=== PATIENT | male | born 1965 | race Caucasian/White ===

== ENCOUNTER 2024-06-20 13:31 | Outpatient (RCR) | payer OTHER, SELFPAY | END 2024-06-20 23:59 | disposition home or self-care (01) | LOC: RST 13:31 | PROVIDERS: ATTENDING PHYSICIAN Family Medicine | DX: I69.322 Dysarthria following cerebral infarction (principal); I69.314 Frontal lobe and executive function deficit following cerebral infarction; Z73.6 Limitation of activities due to disability; Z91.81 History of falling; I69.398 Other sequelae of cerebral infarction; R26.89 Other abnormalities of gait and mobility | CPT/HCPCS: 96125; 97110; 97112; 97116; 97129; 97130; 97140; 97163; 97167; 97530; 97535 ==

== ENCOUNTER 2024-07-16 12:45 | Outpatient (RCR) | payer OTHER, SELFPAY | END 2024-07-16 23:59 | disposition home or self-care (01) | LOC: RST 12:45 | PROVIDERS: ATTENDING PHYSICIAN Family Medicine | DX: I69.322 Dysarthria following cerebral infarction (principal); I69.314 Frontal lobe and executive function deficit following cerebral infarction; R41.841 Cognitive communication deficit; I69.398 Other sequelae of cerebral infarction; Z73.6 Limitation of activities due to disability | CPT/HCPCS: 97110; 97112; 97116; 97129; 97130; 97140; 97530 ==

== ENCOUNTER 2024-08-21 10:41 | Outpatient (RCR) | payer OTHER, MEDICAID, SELFPAY | END 2024-08-21 23:59 | disposition home or self-care (01) | LOC: RST 10:41 | PROVIDERS: ATTENDING PHYSICIAN Family Medicine | DX: I69.322 Dysarthria following cerebral infarction (principal); I69.314 Frontal lobe and executive function deficit following cerebral infarction | CPT/HCPCS: 97010; 97110; 97112; 97116; 97129; 97130; 97140; 97530; 97535 ==

== ENCOUNTER 2024-09-16 12:49 | Outpatient (RCR) | payer MEDICAID, OTHER, SELFPAY | END 2024-09-16 23:59 | disposition home or self-care (01) | LOC: RST 12:49 | PROVIDERS: ATTENDING PHYSICIAN Family Medicine | DX: I69.322 Dysarthria following cerebral infarction (principal); Z73.6 Limitation of activities due to disability; I69.393 Ataxia following cerebral infarction; I69.398 Other sequelae of cerebral infarction; I69.314 Frontal lobe and executive function deficit following cerebral infarction; I69.318 Other symptoms and signs involving cognitive functions following cerebral infarction | CPT/HCPCS: 97110; 97112; 97116; 97140; 97163; 97167; 97530 ==

== ENCOUNTER 2024-10-21 11:40 | Outpatient (RCR) | payer OTHER, SELFPAY | END 2024-10-21 23:59 | disposition home or self-care (01) | LOC: RST 11:40 | PROVIDERS: ATTENDING PHYSICIAN Family Medicine | DX: I69.322 Dysarthria following cerebral infarction (principal); I69.393 Ataxia following cerebral infarction; I69.398 Other sequelae of cerebral infarction; I69.314 Frontal lobe and executive function deficit following cerebral infarction; I69.318 Other symptoms and signs involving cognitive functions following cerebral infarction; Z73.6 Limitation of activities due to disability | CPT/HCPCS: 97110; 97112; 97116; 97140; 97530; 97537 ==

== ENCOUNTER 2024-11-18 11:40 | Outpatient (RCR) | payer OTHER, SELFPAY | END 2024-11-18 23:59 | disposition home or self-care (01) | LOC: RST 11:40 | PROVIDERS: ATTENDING PHYSICIAN Family Medicine | DX: I69.322 Dysarthria following cerebral infarction (principal); I69.393 Ataxia following cerebral infarction; Z73.6 Limitation of activities due to disability; I69.398 Other sequelae of cerebral infarction; I69.310 Attention and concentration deficit following cerebral infarction; I69.314 Frontal lobe and executive function deficit following cerebral infarction; I69.311 Memory deficit following cerebral infarction; I69.318 Other symptoms and signs involving cognitive functions following cerebral infarction; R41.841 Cognitive communication deficit; M25.512 Pain in left shoulder | CPT/HCPCS: 97110; 97112; 97116; 97140; 97530; 97537 ==

== ENCOUNTER 2024-12-18 12:43 | Outpatient (RCR) | payer OTHER, SELFPAY | END 2024-12-18 23:59 | disposition home or self-care (01) | LOC: RST 12:43 | PROVIDERS: ATTENDING PHYSICIAN Family Medicine | DX: I69.322 Dysarthria following cerebral infarction (principal); I69.314 Frontal lobe and executive function deficit following cerebral infarction; I69.310 Attention and concentration deficit following cerebral infarction; I69.311 Memory deficit following cerebral infarction; R41.841 Cognitive communication deficit; M25.512 Pain in left shoulder; Z73.6 Limitation of activities due to disability; I69.398 Other sequelae of cerebral infarction; I69.393 Ataxia following cerebral infarction; I69.318 Other symptoms and signs involving cognitive functions following cerebral infarction | CPT/HCPCS: 97110; 97112; 97116; 97140; 97530; 97537 ==

== ENCOUNTER 2025-01-15 11:41 | Outpatient (RCR) | payer OTHER, SELFPAY | END 2025-01-15 23:59 | disposition home or self-care (01) | LOC: RST 11:41 | PROVIDERS: ATTENDING PHYSICIAN Family Medicine | DX: I69.322 Dysarthria following cerebral infarction (principal); I69.314 Frontal lobe and executive function deficit following cerebral infarction; I69.310 Attention and concentration deficit following cerebral infarction; I69.311 Memory deficit following cerebral infarction; M25.512 Pain in left shoulder; I69.393 Ataxia following cerebral infarction; I69.398 Other sequelae of cerebral infarction; I69.318 Other symptoms and signs involving cognitive functions following cerebral infarction; Z73.6 Limitation of activities due to disability; R41.841 Cognitive communication deficit | CPT/HCPCS: 97110; 97112; 97116; 97140; 97530; 97537 ==

== ENCOUNTER 2025-02-17 11:46 | Outpatient (RCR) | payer OTHER, SELFPAY | END 2025-02-17 23:59 | disposition home or self-care (01) | LOC: RST 11:46 | PROVIDERS: ATTENDING PHYSICIAN Family Medicine | DX: I69.322 Dysarthria following cerebral infarction (principal); I69.314 Frontal lobe and executive function deficit following cerebral infarction; Z73.6 Limitation of activities due to disability; I69.310 Attention and concentration deficit following cerebral infarction; I69.311 Memory deficit following cerebral infarction; M25.512 Pain in left shoulder; I69.393 Ataxia following cerebral infarction; I69.398 Other sequelae of cerebral infarction; I69.318 Other symptoms and signs involving cognitive functions following cerebral infarction; R41.841 Cognitive communication deficit | CPT/HCPCS: 97110; 97112; 97116; 97140; 97530; 97537 ==

== ENCOUNTER 2025-03-19 11:47 | Outpatient (RCR) | payer OTHER, SELFPAY | END 2025-03-19 23:59 | disposition home or self-care (01) | LOC: RST 11:47 | PROVIDERS: ATTENDING PHYSICIAN Family Medicine | DX: I69.322 Dysarthria following cerebral infarction (principal); I69.398 Other sequelae of cerebral infarction (principal); I69.314 Frontal lobe and executive function deficit following cerebral infarction; Z73.6 Limitation of activities due to disability; I69.310 Attention and concentration deficit following cerebral infarction; I69.311 Memory deficit following cerebral infarction; M25.512 Pain in left shoulder; I69.393 Ataxia following cerebral infarction; I69.318 Other symptoms and signs involving cognitive functions following cerebral infarction; R41.841 Cognitive communication deficit | CPT/HCPCS: 97110; 97112; 97116; 97140; 97530; 97537 ==

== ENCOUNTER 2025-04-16 10:46 | Outpatient (RCR) | payer OTHER, SELFPAY | END 2025-04-16 23:59 | disposition home or self-care (01) | LOC: RST 10:46 | PROVIDERS: ATTENDING PHYSICIAN Family Medicine | DX: I69.322 Dysarthria following cerebral infarction (principal); I69.314 Frontal lobe and executive function deficit following cerebral infarction; Z73.6 Limitation of activities due to disability; I69.310 Attention and concentration deficit following cerebral infarction; I69.311 Memory deficit following cerebral infarction; M25.512 Pain in left shoulder; I69.393 Ataxia following cerebral infarction; I69.398 Other sequelae of cerebral infarction; I69.318 Other symptoms and signs involving cognitive functions following cerebral infarction; R41.841 Cognitive communication deficit | CPT/HCPCS: 97010; 97110; 97112; 97116; 97140; 97530 ==

== ENCOUNTER 2025-05-21 11:43 | Outpatient (RCR) | payer OTHER, SELFPAY | END 2025-05-21 23:59 | disposition home or self-care (01) | LOC: RST 11:43 | PROVIDERS: ATTENDING PHYSICIAN Family Medicine | DX: I69.398 Other sequelae of cerebral infarction (principal); I69.314 Frontal lobe and executive function deficit following cerebral infarction; Z73.6 Limitation of activities due to disability | CPT/HCPCS: 97110; 97112; 97116; 97140; 97530; 97537 ==

== ENCOUNTER 2025-06-18 12:03 | Outpatient (RCR) | payer OTHER, SELFPAY | END 2025-06-18 23:59 | disposition home or self-care (01) | LOC: RST 12:03 | PROVIDERS: ATTENDING PHYSICIAN Family Medicine | DX: I69.322 Dysarthria following cerebral infarction (principal); I69.314 Frontal lobe and executive function deficit following cerebral infarction; Z73.6 Limitation of activities due to disability; I69.310 Attention and concentration deficit following cerebral infarction; M25.512 Pain in left shoulder; I69.393 Ataxia following cerebral infarction; I69.398 Other sequelae of cerebral infarction; I69.318 Other symptoms and signs involving cognitive functions following cerebral infarction; R41.841 Cognitive communication deficit; I69.311 Memory deficit following cerebral infarction | CPT/HCPCS: 97110; 97112; 97116; 97140; 97530 ==

== ENCOUNTER 2025-07-21 12:46 | Outpatient (RCR) | payer OTHER, SELFPAY | END 2025-07-21 23:59 | disposition home or self-care (01) | LOC: RST 12:46 | PROVIDERS: ATTENDING PHYSICIAN Family Medicine | DX: I69.322 Dysarthria following cerebral infarction (principal); I69.314 Frontal lobe and executive function deficit following cerebral infarction; Z73.6 Limitation of activities due to disability; I69.310 Attention and concentration deficit following cerebral infarction; I69.311 Memory deficit following cerebral infarction; M25.512 Pain in left shoulder; I69.393 Ataxia following cerebral infarction; I69.398 Other sequelae of cerebral infarction; I69.318 Other symptoms and signs involving cognitive functions following cerebral infarction; R41.841 Cognitive communication deficit | CPT/HCPCS: 97110; 97112; 97116; 97530; 97535 ==

== ENCOUNTER 2025-08-04 08:39 | Outpatient (RCR) | payer OTHER, SELFPAY | END 2025-08-05 06:59 | disposition home or self-care (01) | LOC: RST 08:39 | PROVIDERS: ATTENDING PHYSICIAN Family Medicine | DX: I69.322 Dysarthria following cerebral infarction (principal); I69.314 Frontal lobe and executive function deficit following cerebral infarction; Z73.6 Limitation of activities due to disability; I69.310 Attention and concentration deficit following cerebral infarction; I69.311 Memory deficit following cerebral infarction; M25.512 Pain in left shoulder; I69.393 Ataxia following cerebral infarction; I69.398 Other sequelae of cerebral infarction; I69.318 Other symptoms and signs involving cognitive functions following cerebral infarction; R41.841 Cognitive communication deficit | CPT/HCPCS: 97110; 97112; 97140 ==